=== PATIENT | male | born 1980 | race Caucasian/White ===

== ENCOUNTER 2022-06-17 15:09 | Outpatient (CLI) | payer SELFPAY | END 2022-06-17 15:10 | disposition home or self-care (01) | LOC: AMB 07-17 10:38 | PROVIDERS: Visit Provider Family Medicine | DX: S99.911A Unspecified injury of right ankle, initial encounter (principal); V49.9XXA Car occupant (driver) (passenger) injured in unspecified traffic accident, initial encounter; Y92.410 Unspecified street and highway as the place of occurrence of the external cause; Y93.9 Activity, unspecified ==